=== PATIENT | female | born 1985 | race Hispanic/Latino ===

== ENCOUNTER 2019-11-12 18:36 | Observation (INO) | payer MEDICAID ==
[~2019-11-12 18:36] MED LIST: PREN1TAB89 PO
[2019-11-12 19:10] LABS: APPEARANCE,URINE CLOUDY (CLEAR); BILIRUBIN,URINE NEGATIVE (NEGATIVE); COLOR,URINE YELLOW (YELLOW); GLUCOSE, URINE (UA) NEGATIVE (NEGATIVE); KETONES,URINE NEGATIVE (NEGATIVE); LEUKOCYTE ESTERASE ,URINE SMALL (NEGATIVE); NITRATE,URINE NEGATIVE (NEGATIVE); OCCULT BLOOD,URINE NEGATIVE (NEGATIVE); PROTEIN,URINE TRACE mg/dL (NEGATIVE)
[2019-11-12 19:36] LABS: BACTERIA,URINE Moderate /HPF (None Seen); RBC,URINE 0-1 /HPF (0-1)
[2019-11-12 19:38] LABS: CALCIUM OXALATE CRYSTALS,UR Few /LPF (None Seen)
[2019-11-12 19:39] LABS: SQUAMOUS EPITHELIAL CELL,UR Many /HPF (0-2)
[2019-11-12 20:19] LABS: AMPHET/METH SCREEN,URINE NEGATIVE (NEGATIVE); BARBITURATE SCREEN, URINE NEGATIVE (NEGATIVE); BENZODIAZEPINES SCREEN,URINE NEGATIVE (NEGATIVE); CANNABINOID SCREEN,URINE NEGATIVE (NEGATIVE); COCAINE SCREEN,URINE NEGATIVE (NEGATIVE); OPIATE SCREEN,URINE NEGATIVE (NEGATIVE); PHENCYCLIDINE SCREEN,URINE NEGATIVE (NEGATIVE)
[2019-11-12] MEDS ORDERED: LACTATED RINGERS 1000ML 1,000 ML IV PRN (20:42)
[2019-11-12] MEDS ORDERED: LACTATED RINGERS 1000ML 1,000 ML IV SCH (20:45)
[2019-11-12] MEDS ORDERED: TERBUTALINE SULFATE VIAL 1MG/ML SQ SCH ×2 (20:45→21:15)
[2019-11-12] MEDS ORDERED: LACTATED RINGERS 1000ML 1,000 ML IV ONE (21:09)
[2019-11-12] MEDS ORDERED: TERBUTALINE SULFATE VIAL 1MG/ML SQ ONE (21:09)
== END 2019-11-12 23:50 | disposition home or self-care (01) ==
LOC: EDH 18:36 → LDH 18:37
PROVIDERS: ADMIT Obstetrics & Gynecology; ATTEND Obstetrics & Gynecology
DX: O60.03 Preterm labor without delivery, third trimester (principal); R10.30 Lower abdominal pain, unspecified; Z3A.32 32 weeks gestation of pregnancy
CPT/HCPCS: 80305; 81001; 87088; 96372; 99284; G0378 ×5; J3105; J7120 ×2; 96360; 96361

== ENCOUNTER 2019-12-04 05:26 | Observation (INO) | payer MEDICAID ==
[~2019-12-04] VITALS: Ht 160 cm; Wt 78.5 kg
[2019-12-04] MEDS ORDERED: LACTATED RINGERS 1000ML 1,000 ML IV SCH ×2 (05:45→07:00)
[2019-12-04 06:01] LABS: APPEARANCE,URINE Clear (CLEAR); BILIRUBIN,URINE Negative (NEGATIVE); COLOR,URINE Yellow (YELLOW); GLUCOSE, URINE (UA) Negative (NEGATIVE); KETONES,URINE Trace mg/dL (NEGATIVE); LEUKOCYTE ESTERASE ,URINE Moderate (NEGATIVE); NITRATE,URINE Negative (NEGATIVE); OCCULT BLOOD,URINE Negative (NEGATIVE); PROTEIN,URINE Trace mg/dL (NEGATIVE)
[2019-12-04 06:04] LABS: BACTERIA,URINE Few /HPF (None Seen); RBC,URINE 0-1 /HPF (0-1); SQUAMOUS EPITHELIAL CELL,UR Moderate /HPF (0-2)
[2019-12-04 06:05] LABS: MUCUS,URINE Many LPF (None Seen)
[2019-12-04 06:09] LABS: AMPHET/METH SCREEN,URINE NEGATIVE (NEGATIVE); BARBITURATE SCREEN, URINE NEGATIVE (NEGATIVE); BENZODIAZEPINES SCREEN,URINE NEGATIVE (NEGATIVE); CANNABINOID SCREEN,URINE NEGATIVE (NEGATIVE); COCAINE SCREEN,URINE NEGATIVE (NEGATIVE); OPIATE SCREEN,URINE NEGATIVE (NEGATIVE); PHENCYCLIDINE SCREEN,URINE NEGATIVE (NEGATIVE)
[2019-12-04 06:21] VITALS: BP 115/62
[2019-12-04] MEDS ORDERED: PREN-196 PO (06:25)
[2019-12-04] MEDS ORDERED: TERBUTALINE SULFATE VIAL 1MG/ML SQ ONE (06:59)
[2019-12-04] MEDS ORDERED: TERBUTALINE SULFATE VIAL 1MG/ML SQ PRN (07:00)
== END 2019-12-04 09:50 | disposition home or self-care (01) ==
LOC: EDH 05:26 → LDH 05:27
PROVIDERS: ADMIT Obstetrics & Gynecology; ATTEND Obstetrics & Gynecology
DX: O26.893 Other specified pregnancy related conditions, third trimester (principal); R10.9 Unspecified abdominal pain; Z3A.35 35 weeks gestation of pregnancy
CPT/HCPCS: 80305; 81001; 87088; 96372; 99284; G0378 ×4; J3105; 96360